=== PATIENT | female | born 1970 | race Caucasian/White ===

== ENCOUNTER 2025-06-03 22:16 | Emergency (ER) | payer BC ==
[2025-06-03 22:44] LABS: MEAN PLATELET VOLUME 9.4 fL (9.4-12.3); NRBC ABSOLUTE 0.00 K/uL (0.00-0.02); NRBC PERCENT 0.0 /100WBC (0.0-0.2); PLATELET COUNT,PLT 305 K/uL (150-400); RED BLOOD CELL COUNT 4.34 M/uL (4.10-5.30); WHITE BLOOD CELL COUNT,WBC 11.15 K/uL (3.9-11.3)
[2025-06-03] MEDS: Ondansetron 4 MG/2 ML SDV IVPUSH ONE (22:45)
[2025-06-03 23:09] LABS: EOSINOPHILS ABSOLUTE MAN 0.11 K/uL (0.00-0.45); EOSINOPHILS PERCENT MAN 1 % (0-6); LYMPHOCYTES ABSOLUTE MAN 6.24 K/uL (1.00-4.80); LYMPHOCYTES PERCENT MAN 56 % (24-44); MONOCYTES ABSOLUTE MAN 0.33 K/uL (0.00-0.80); MONOCYTES PERCENT MAN 3 % (0-8); SEG NEUTROPHILS ABSOLUTE MAN 4.46 K/uL (1.80-7.70); SEG NEUTROPHILS PERCENT MAN 40 % (41-71)
[2025-06-03 23:10] LABS: A/G RATIO 1.1 (0.9-1.6); ALANINE AMINOTRANSFERASE,ALT 83 IU/L (14-63); ASPARTATE AMNIOTRANSFERASE,AST 108 IU/L (15-37); BILIRUBIN TOTAL 0.9 mg/dL (0.2-1.0); BLOOD UREA NITROGEN,BUN 26 mg/dL (7.0-18.0); CARBON DIOXIDE,CO2 23.0 mmol/L (21.0-32.0); CHLORIDE,CL 103 mmol/L (98-107); CREATININE 0.8 mg/dL (0.6-1.0); ESTIMATED GFR 88 mL/min (>60); GLUCOSE RANDOM 116 mg/dL (74-106); POTASSIUM,K 3.1 mmol/L (3.5-5.1); PROTEIN TOTAL,TP 7.9 g/dL (6.4-8.2); SODIUM,NA 142 mmol/L (136-145)
[2025-06-03] MEDS: Iopamidol 755 MG/ML 500 ML Multipack Bottle IVPUSH STA (23:12)
[2025-06-03 23:22] LABS: APPEARANCE,URINE CLEAR; GLUCOSE,URINE NEGATIVE (NEGATIVE); OCCULT BLOOD,URINE MODERATE (NEGATIVE)
[2025-06-03 23:40] LABS: EPITHELIAL CELLS,URINE RARE (NONE-FEW)
[2025-06-03] MEDS: Sucralfate Suspension 1 GM/10 ML Cup PO ONE (23:41)
[2025-06-03] MEDS: Potassium Chloride 20 MEQ Tab.ER PO ONE (23:44)
== END 2025-06-04 00:59 | disposition home or self-care (01) ==
LOC: MW.ED 22:16
DX: R10.13 Epigastric pain (principal); R31.9 Hematuria, unspecified; E87.6 Hypokalemia; E86.0 Dehydration; Z79.890 Hormone replacement therapy; Z79.899 Other long term (current) drug therapy
CPT/HCPCS: 36415; 74177; 80053; 81001; 83605; 83690; 84484; 84703; 85025; 93005; 96361; 96374; 96375; 99285; A9270; J2270; J2405; J7030; Q9967; 93010; 99283